=== PATIENT | female | born 1995 | race Caucasian/White ===

== ENCOUNTER 2021-08-02 13:35 | Emergency (ER) | payer OTHER ==
[~2021-08-02] VITALS: Ht 149.9 cm; Wt 68.2 kg
[2021-08-02] MEDS ORDERED: MULTTAB20 PO (13:48)
[2021-08-02 15:39] LABS: BASO % 0.3 % (0.0-1.0); EOS # 0.2 10^3/uL (0.0-0.5); EOS % 2.4 % (0.0-3.0); HEMATOCRIT 37.1 % (36.0-47.0); HEMOGLOBIN 12.5 g/dl (12.0-15.5); LYMPH # 2.4 10^3/uL (1.5-5.0); MEAN CORPUSCULAR HEMOGLOBIN 31.6 pg (27.0-33.0); MEAN CORPUSCULAR HGB CONC 33.7 g/dl (32.0-36.5); MEAN CORPUSCULAR VOLUME 93.7 fl (80.0-96.0); MONO # 0.5 10^3/uL (0.0-0.8); MONO % 6.7 % (2.0-8.0); NEUTROPHILS # 4.5 10^3/uL (1.5-8.5); NEUTROPHILS % 59.3 % (36.0-66.0); PLATELET COUNT, AUTOMATED 318 10^3/uL (150-450); RED BLOOD COUNT 3.96 10^6/uL (4.00-5.40); WHITE BLOOD COUNT 7.6 10^3/uL (4.0-10.0)
[2021-08-02 16:10] LABS: HCG, SERUM QUALITATIVE POSITIVE (NEGATIVE)
[2021-08-02 16:12] LABS: ALBUMIN 3.9 GM/DL (3.2-5.2); ALT/SGPT 47 U/L (12-78); BILIRUBIN,DIRECT < 0.1 MG/DL (0.0-0.2); BILIRUBIN,TOTAL 0.3 MG/DL (0.2-1.0); BLOOD UREA NITROGEN 9 MG/DL (7-18); CALCIUM LEVEL 9.4 MG/DL (8.5-10.1); CARBON DIOXIDE LEVEL 26 MEQ/L (21-32); CHLORIDE LEVEL 108 MEQ/L (98-107); CREATININE FOR GFR 0.61 MG/DL (0.55-1.30); GLOMERULAR FILTRATION RATE > 60.0 (>60); GLUCOSE, FASTING 89 MG/DL (70-100); LIPASE 97 U/L (73-393); POTASSIUM SERUM 4.6 MEQ/L (3.5-5.1); SODIUM LEVEL 140 MEQ/L (136-145); TOTAL PROTEIN 7.2 GM/DL (6.4-8.2)
[2021-08-02 17:28] LABS: HCG, SERUM QUANTITATIVE 3046 MIU/ML
[2021-08-02 18:55] VITALS: BP 122/73
[2021-08-02 19:55] LABS: GC DNA AMPLIFICATION NEGATIVE (NEGATIVE)
== END 2021-08-02 18:57 | disposition home or self-care (01) ==
LOC: M ED 13:35
DX: O26.899 Other specified pregnancy related conditions, unspecified trimester (principal); R10.9 Unspecified abdominal pain

== ENCOUNTER → 2021-08-04 | Outpatient (CLI) | payer OTHER ==
[~2021-08-04] MED LIST: MULTTAB20 PO
== END ==
LOC: M PLALAB 14:32
PROVIDERS: ATTEND Nurse Practitioner Family
DX: O26.899 Other specified pregnancy related conditions, unspecified trimester (principal); Z3A.00 Weeks of gestation of pregnancy not specified

== ENCOUNTER 2022-08-26 20:50 | Emergency (ER) | payer OTHER ==
[~2022-08-26] VITALS: Ht 152.4 cm; Wt 73.9 kg
[2022-08-26] MEDS ORDERED: LIDOCAINE 4% CREAM 5GM (LMX4) TOP ONE (21:55)
[2022-08-26] MEDS ORDERED: KETOROLAC 60MG 2ML VIAL IM ONE (21:55)
[2022-08-26 22:51] VITALS: BP 124/76
== END 2022-08-26 22:54 | disposition home or self-care (01) ==
LOC: M ED 20:50
DX: S99.911A Unspecified injury of right ankle, initial encounter (principal); X50.0XXA Overexertion from strenuous movement or load, initial encounter; Y92.410 Unspecified street and highway as the place of occurrence of the external cause; Y93.01 Activity, walking, marching and hiking; Y99.8 Other external cause status; Z79.899 Other long term (current) drug therapy
CPT/HCPCS: 73610; 96372; 99284; J1885

== ENCOUNTER 2023-07-11 14:42 | Emergency (ER) | payer OTHER ==
[~2023-07-11] VITALS: Ht 152.4 cm; Wt 77.9 kg
[2023-07-11 16:09] LABS: BASO % 0.2 % (0.0-1.0); EOS # 0.1 10^3/uL (0.0-0.5); EOS % 1.6 % (0.0-3.0); HEMATOCRIT 40.5 % (36.0-47.0); HEMOGLOBIN 13.7 g/dl (12.0-15.5); LYMPH # 1.8 10^3/uL (1.5-5.0); LYMPH % 21.8 % (24.0-44.0); MEAN CORPUSCULAR HEMOGLOBIN 31.4 pg (27.0-33.0); MEAN CORPUSCULAR HGB CONC 33.8 g/dl (32.0-36.5); MEAN CORPUSCULAR VOLUME 92.7 fl (80.0-96.0); MONO # 0.4 10^3/uL (0.0-0.8); MONO % 4.7 % (2.0-8.0); NEUTROPHILS % 71.6 % (36.0-66.0); PLATELET COUNT, AUTOMATED 362 10^3/uL (150-450); RED BLOOD COUNT 4.37 10^6/uL (4.00-5.40); WHITE BLOOD COUNT 8.3 10^3/uL (4.0-10.0)
[2023-07-11 16:37] LABS: HCG, SERUM QUANTITATIVE 4.6 MIU/ML (<4.2)
[2023-07-11 16:39] LABS: BLOOD UREA NITROGEN 11 MG/DL (9-23); CALCIUM LEVEL 8.6 MG/DL (8.5-10.1); CARBON DIOXIDE LEVEL 26 MMOL/L (20-31); CHLORIDE LEVEL 108 MMOL/L (98-107); CREATININE FOR GFR 0.63 MG/DL (0.55-1.30); GLOMERULAR FILTRATION RATE > 60.0 (>60); GLUCOSE, FASTING 94 MG/DL (60-100); SODIUM LEVEL 140 MMOL/L (136-145)
[2023-07-11] MEDS: ACETAMINOPHEN 325 MG TAB PO ONE (18:41)
[2023-07-11 20:02] VITALS: BP 123/64; TEMP 97.8; O2SAT 98
== END 2023-07-11 20:04 | disposition home or self-care (01) ==
LOC: M ED 14:42
DX: O26.851 Spotting complicating pregnancy, first trimester (principal); Z32.01 Encounter for pregnancy test, result positive; Z79.810 Long term (current) use of selective estrogen receptor modulators (SERMs); Z3A.01 Less than 8 weeks gestation of pregnancy

== ENCOUNTER 2023-10-22 11:58 | Emergency (ER) | payer OTHER ==
[~2023-10-22] VITALS: Ht 152.4 cm; Wt 76.0 kg
[2023-10-22 13:26] LABS: BASO % 0.1 % (0.0-1.0); EOS # 0.2 10^3/uL (0.0-0.5); EOS % 2.7 % (0.0-3.0); HEMATOCRIT 34.6 % (36.0-47.0); HEMOGLOBIN 12.1 g/dl (12.0-15.5); LYMPH # 1.7 10^3/uL (1.5-5.0); LYMPH % 24.5 % (24.0-44.0); MEAN CORPUSCULAR HEMOGLOBIN 32.6 pg (27.0-33.0); MEAN CORPUSCULAR VOLUME 93.3 fl (80.0-96.0); MONO # 0.5 10^3/uL (0.0-0.8); MONO % 6.5 % (2.0-8.0); NEUTROPHILS # 4.6 10^3/uL (1.5-8.5); NEUTROPHILS % 65.9 % (36.0-66.0); PLATELET COUNT, AUTOMATED 301 10^3/uL (150-450); RED BLOOD COUNT 3.71 10^6/uL (4.00-5.40)
[2023-10-22 15:02] LABS: APPEARANCE, URINE HAZY (CLEAR); BACTERIA, URINE AUTO 1+ (NEGATIVE); BILIRUBIN, URINE AUTO NEGATIVE (NEGATIVE); BLOOD, URINE BLOOD NEGATIVE (NEGATIVE); COLOR, URINE YELLOW (YELLOW); GLUCOSE, URINE (UA) AUTO NEGATIVE (NEGATIVE); KETONE, URINE AUTO 1+ mg/dL (NEGATIVE); LEUKOCYTE ESTERASE, URINE AUTO 2+ (NEGATIVE); MUCUS, URINE SMALL (NEGATIVE); NITRITE, URINE AUTO NEGATIVE (NEGATIVE); PROTEIN, URINE AUTO NEGATIVE (NEGATIVE); RBC, URINE AUTO 1 /HPF (0-3); SPECIFIC GRAVITY URINE AUTO 1.005 (1.002-1.035); SQUAMOUS EPITHELIAL CELL UR AU 3 /HPF (0-6); UROBILINOGEN, URINE AUTO 0.2 mg/dL (0.0-2.0); WBC, URINE AUTO 4 /HPF (0-3)
[2023-10-22] MEDS ORDERED: CEPH500C PO (15:28)
[2023-10-22 15:39] VITALS: BP 114/59; TEMP 97.3; O2SAT 100
== END 2023-10-22 15:41 | disposition home or self-care (01) ==
LOC: M ED 11:58
DX: O26.852 Spotting complicating pregnancy, second trimester (principal); Z3A.15 15 weeks gestation of pregnancy; O23.42 Unspecified infection of urinary tract in pregnancy, second trimester; Z79.2 Long term (current) use of antibiotics; Z79.810 Long term (current) use of selective estrogen receptor modulators (SERMs)

== ENCOUNTER 2023-11-22 13:58 | Emergency (ER) | payer OTHER ==
[~2023-11-22] VITALS: Ht 152.4 cm; Wt 75.2 kg
[~2023-11-22 13:58] MED LIST changes: +CEPH500C PO
[2023-11-22 15:18] LABS: BASO % 0.1 % (0.0-1.0); EOS # 0.2 10^3/uL (0.0-0.5); EOS % 1.8 % (0.0-3.0); HEMATOCRIT 33.6 % (36.0-47.0); HEMOGLOBIN 11.6 g/dl (12.0-15.5); LYMPH # 1.6 10^3/uL (1.5-5.0); LYMPH % 19.1 % (24.0-44.0); MEAN CORPUSCULAR HEMOGLOBIN 33.1 pg (27.0-33.0); MEAN CORPUSCULAR HGB CONC 34.5 g/dl (32.0-36.5); MONO # 0.4 10^3/uL (0.0-0.8); MONO % 4.9 % (2.0-8.0); NEUTROPHILS # 6.2 10^3/uL (1.5-8.5); NEUTROPHILS % 73.6 % (36.0-66.0); PLATELET COUNT, AUTOMATED 324 10^3/uL (150-450); WHITE BLOOD COUNT 8.4 10^3/uL (4.0-10.0)
[2023-11-22 15:49] LABS: LIPASE 26 U/L (12-53)
[2023-11-22 15:51] LABS: ALBUMIN 3.1 G/DL (3.2-5.2); ALKALINE PHOSPHATASE 67 U/L (46-116); ALT/SGPT 24 U/L (7.0-40); AST/SGOT 11 U/L (<34); BILIRUBIN,DIRECT 0.1 MG/DL (<0.4); BILIRUBIN,TOTAL 0.4 MG/DL (0.3-1.2); BLOOD UREA NITROGEN 6 MG/DL (9-23); CALCIUM LEVEL 9.1 MG/DL (8.5-10.1); CARBON DIOXIDE LEVEL 22 MMOL/L (20-31); CHLORIDE LEVEL 108 MMOL/L (98-107); GLOMERULAR FILTRATION RATE > 60.0 (>60); GLUCOSE, FASTING 81 MG/DL (60-100); POTASSIUM SERUM 4.3 MMOL/L (3.5-5.1); SODIUM LEVEL 136 MMOL/L (136-145); TOTAL PROTEIN 6.6 G/DL (5.7-8.2)
[2023-11-22 16:25] LABS: HCG, SERUM QUANTITATIVE 26795.2 MIU/ML (<4.2)
[2023-11-22] MEDS: ONDANSETRON 4MG ORAL DISINTEGRATING TAB PO ONE ×2 (17:25→19:37)
[2023-11-22] MEDS ORDERED: ONDA-282 PO (19:26)
[2023-11-22 19:39] VITALS: BP 109/68; TEMP 97.8; O2SAT 99
== END 2023-11-22 19:40 | disposition home or self-care (01) ==
LOC: M ED 13:58
DX: K52.9 Noninfective gastroenteritis and colitis, unspecified (principal); Z79.83 Long term (current) use of bisphosphonates; Z79.899 Other long term (current) drug therapy

== ENCOUNTER 2023-12-03 12:55 | Outpatient (CLI) | payer OTHER ==
[~2023-12-03] VITALS: Ht 152.4 cm; Wt 75.3 kg
[~2023-12-03 12:55] MED LIST changes: +ONDA-282 PO
[2023-12-03 13:16] VITALS: BP 109/58
[2023-12-03] MEDS ORDERED: HOME MED LIST COMPLETE! XX SCH (14:05)
[2023-12-03 14:26] LABS: APPEARANCE, URINE CLEAR (CLEAR); BACTERIA, URINE AUTO NEGATIVE (NEGATIVE); BILIRUBIN, URINE AUTO NEGATIVE (NEGATIVE); BLOOD, URINE BLOOD NEGATIVE (NEGATIVE); COLOR, URINE YELLOW (YELLOW); GLUCOSE, URINE (UA) AUTO NEGATIVE (NEGATIVE); KETONE, URINE AUTO TRACE mg/dL (NEGATIVE); LEUKOCYTE ESTERASE, URINE AUTO TRACE (NEGATIVE); MUCUS, URINE SMALL (NEGATIVE); NITRITE, URINE AUTO NEGATIVE (NEGATIVE); PROTEIN, URINE AUTO NEGATIVE (NEGATIVE); RBC, URINE AUTO 0 /HPF (0-3); SPECIFIC GRAVITY URINE AUTO 1.028 (1.002-1.035); SQUAMOUS EPITHELIAL CELL UR AU 1 /HPF (0-6); UROBILINOGEN, URINE AUTO 0.2 mg/dL (0.0-2.0); WBC, URINE AUTO 2 /HPF (0-3)
[2023-12-03 15:06] LABS: MEAN CORPUSCULAR HEMOGLOBIN 33.3 pg (27.0-33.0); MEAN CORPUSCULAR HGB CONC 34.4 g/dl (32.0-36.5); PLATELET COUNT, AUTOMATED 291 10^3/uL (150-450); WHITE BLOOD COUNT 7.9 10^3/uL (4.0-10.0)
[2023-12-03] MEDS: LACTATED RINGER'S 1000 ML IV ONE (15:25)
[2023-12-03 15:26] VITALS: BP 118/73
[2023-12-03] MEDS: PERCOCET 5MG/325MG TAB PO ONE (15:26)
[2023-12-03 17:28] VITALS: BP 115/71
[2023-12-03 18:18] LABS: LIPASE 31 U/L (12-53)
[2023-12-03 18:19] LABS: AMYLASE 87 U/L (30-118)
[2023-12-03 18:20] LABS: ALBUMIN 3.2 G/DL (3.2-5.2); ALKALINE PHOSPHATASE 70 U/L (46-116); ALT/SGPT 27 U/L (7.0-40); AST/SGOT 11 U/L (<34); BILIRUBIN,TOTAL 0.4 MG/DL (0.3-1.2); BLOOD UREA NITROGEN 7 MG/DL (9-23); CALCIUM LEVEL 9.1 MG/DL (8.5-10.1); CARBON DIOXIDE LEVEL 23 MMOL/L (20-31); CHLORIDE LEVEL 106 MMOL/L (98-107); CREATININE FOR GFR 0.43 MG/DL (0.55-1.30); GLOMERULAR FILTRATION RATE > 60.0 (>60); GLUCOSE, FASTING 113 MG/DL (60-100); SODIUM LEVEL 137 MMOL/L (136-145); TOTAL PROTEIN 6.5 G/DL (5.7-8.2)
[2023-12-03] MEDS: BICITRA 30ML SOLN UDC PO ONE (19:19)
[2023-12-03] MEDS: BUTORPHANOL 2 MG/ML 1ML VIAL IV ONE (19:20)
[2023-12-03] MEDS: PROMETHAZINE 25MG/ML 1ML VIAL IV ONE (19:20)
[2023-12-03 19:39] VITALS: BP 109/59
[2023-12-04 00:12] VITALS: BP 111/67
== END 2023-12-04 00:30 | disposition home or self-care (01) ==
LOC: M LDO 12:55
PROVIDERS: ATTEND Advanced Practice Midwife
DX: O26.892 Other specified pregnancy related conditions, second trimester (principal); R10.2 Pelvic and perineal pain; Z3A.20 20 weeks gestation of pregnancy
CPT/HCPCS: 59025; 76700; 76815; 76817; 80053; 81001; 82150; 83690; 85027; 87086; 96374; 96375; G0463; J0595; J2550

== ENCOUNTER 2023-12-26 11:58 | Outpatient (CLI) | payer OTHER ==
[~2023-12-26] VITALS: Ht 152.4 cm; Wt 75.0 kg
[2023-12-26 12:19] VITALS: BP 109/64
[2023-12-26] MEDS ORDERED: ACET325C5 PO (12:29)
[2023-12-26] MEDS ORDERED: HOME MED LIST COMPLETE! XX SCH (12:30)
[2023-12-26] MEDS: FIORICET TAB PO ONE (12:56)
[2023-12-26 13:50] VITALS: BP 114/64
[2023-12-26 15:27] LABS: Trichomonas vaginalis (AMP) NOT DETECTED (NEGATIVE)
[2023-12-26 15:44] VITALS: BP 115/59
[2023-12-26 15:52] LABS: GC DNA AMPLIFICATION NEGATIVE (NEGATIVE)
== END 2023-12-26 16:17 | disposition home or self-care (01) ==
LOC: M LDO 11:58
PROVIDERS: ATTEND Advanced Practice Midwife
DX: O36.8120 Decreased fetal movements, second trimester, not applicable or unspecified (principal); O26.892 Other specified pregnancy related conditions, second trimester; O09.32 Supervision of pregnancy with insufficient antenatal care, second trimester; O99.342 Other mental disorders complicating pregnancy, second trimester; R51.9 Headache, unspecified; N89.8 Other specified noninflammatory disorders of vagina; F41.0 Panic disorder [episodic paroxysmal anxiety]; Z3A.24 24 weeks gestation of pregnancy
CPT/HCPCS: 59025; 76816; 87661; 87810; 87850; G0463

== ENCOUNTER → 2025-01-30 | Outpatient (CLI) | payer OTHER ==
[~2025-01-30] MED LIST changes: +ACET325C5 PO
[2025-01-30 16:23] LABS: APPEARANCE, URINE CLEAR (CLEAR); BACTERIA, URINE AUTO 1+ (NEGATIVE); BILIRUBIN, URINE AUTO NEGATIVE (NEGATIVE); BLOOD, URINE BLOOD NEGATIVE (NEGATIVE); GLUCOSE, URINE (UA) AUTO NEGATIVE (NEGATIVE); KETONE, URINE AUTO TRACE mg/dL (NEGATIVE); LEUKOCYTE ESTERASE, URINE AUTO 3+ (NEGATIVE); MUCUS, URINE SMALL (NEGATIVE); NITRITE, URINE AUTO NEGATIVE (NEGATIVE); PROTEIN, URINE AUTO NEGATIVE (NEGATIVE); RBC, URINE AUTO 1 /HPF (0-3); SPECIFIC GRAVITY URINE AUTO 1.024 (1.002-1.035); SQUAMOUS EPITHELIAL CELL UR AU 2 /HPF (0-6); UROBILINOGEN, URINE AUTO 0.2 mg/dL (0.0-2.0); WBC, URINE AUTO 7 /HPF (0-3)
[2025-01-30 16:28] LABS: BASO # 0.0 10^3/uL (0.0-0.2); BASO % 0.3 % (0.0-1.0); EOS # 0.1 10^3/uL (0.0-0.5); EOS % 1.9 % (0.0-3.0); LYMPH # 2.2 10^3/uL (1.5-5.0); LYMPH % 31.3 % (24.0-44.0); MONO # 0.5 10^3/uL (0.0-0.8); MONO % 6.6 % (2.0-8.0); NEUTROPHILS # 4.2 10^3/uL (1.5-8.5); NEUTROPHILS % 59.8 % (36.0-66.0); PLATELET COUNT, AUTOMATED 322 10^3/uL (150-450)
[2025-01-30 16:33] LABS: ERYTHROCYTE SEDIMENTATION RATE 17 mm/hr (0-20)
[2025-01-30 16:47] LABS: IRON (FE) 91 UG/DL (50-170)
[2025-01-30 16:48] LABS: ALT/SGPT 22 U/L (7.0-40); AST/SGOT 17 U/L (<34); CALCIUM LEVEL 9.1 MG/DL (8.5-10.1); CARBON DIOXIDE LEVEL 22 MMOL/L (20-31); CHLORIDE LEVEL 106 MMOL/L (98-107); CHOLESTEROL LEVEL 192 MG/DL (<200); CHOLESTEROL RISK RATIO 3.76 (<5); CREATININE FOR GFR 0.62 MG/DL (0.55-1.30); GLOMERULAR FILTRATION RATE > 90.0 (>60); LDL CHOLESTEROL 125.2 MG/DL (<100); NON-HDL-C 141.0 MG/DL; POTASSIUM SERUM 4.4 MMOL/L (3.5-5.1); SODIUM LEVEL 135 MMOL/L (136-145); TRIGLYCERIDES LEVEL 79 MG/DL (<150)
[2025-01-30 16:51] LABS: FREE T4 1.09 NG/DL (0.89-1.76)
[2025-01-30 16:52] LABS: ESTIMATED AVERAGE GLUCOSE 103.0 MG/DL (60-110)
[2025-01-30 16:53] LABS: TOTAL 25(OH) VITAMIN D 22.5 NG/ML (20.0-100.0); VITAMIN B12 LEVEL 492 PG/ML (211-911)
== END ==
LOC: M LAB 15:03
PROVIDERS: ATTEND Physician Assistant
DX: G43.009 Migraine without aura, not intractable, without status migrainosus (principal)